=== PATIENT | female | born 1975 | race Caucasian/White ===

== ENCOUNTER 2023-05-18 06:43 | Emergency (ER) | payer BC, SELFPAY ==
[2023-05-18 06:46] VITALS: BP 125/69; PULSE 65; RESP 20; TEMP 36.7; O2SAT 99; BMI 23.3
--- NOTE | 2023-05-18 08:01 | ED_ITS ---
HPI - General Adult General Chief complaint: Upper Respiratory Infection Stated complaint: CONGESTION Time Seen by Provider: 05/18/23 07:40 Source: patient Mode of arrival: walk-in History of Present Illness HPI narrative: Patient is a 47-year-old female who is presenting to the Emergency Room with chief complaint of cough, congestion, and no improvement and coughing in the past 6-7 days. Patient has a history of asthma. Patient was seen at urgent care on Thursday. Patient has not follow-up with her PCP in [place]. Patient has mild sinus congestion. Dry cough throughout the day and evening. No severe pain, positive sore throat. No nausea, vomiting, diarrhea. No rash. Patient has no chest pain, mild shortness of breath. Patient was initially placed on Keflex and prednisone. Patient stated that she developed a rash to Keflex, and now she is residential through taking doxycycline. Patient is using Flonase, no other qofi-hyi-dgucpjo medication to help with cough and congestion. No other acute complaints. . All systems are negative except as noted/marked. All systems reviewed and otherwise negative. . Nurses note and vital signs reviewed and patient is not hypoxic. General: The patient appears well and in no apparent distress. Patient is resting comfortably on cart. Patient is not toxic, lethargic, or listless Skin: Warm, dry, no pallor noted. There is no rash noted. No petechiae, purpura. Head: Normocephalic, atraumatic; Patient has no tenderness to palpation to bilateral frontomaxillary sinus. Eye: Normal conjunctiva, no drainage, EOMI. PERRL Ears, Nose, Mouth, and Throat: oral mucosa is moist. Nares patent. Mouth without vesicles. Clear drainage noted to the posterior pharynx, mild cobblestoning, no bilateral tympanic membrane erythema, perforation or bulging. Cardiovascular: Regular Rate and Rhythm, no murmur, gallop, rub Respiratory: Patient is in no distress, no accessory muscle use, lungs are clear to auscultation, no wheezing, rales or rhonchi Back: non-tender, no CVA tenderness bilaterally to percussion. No CT LS midline pain GI: soft, no tenderness to palpation, no masses appreciated. No rebound, guarding, or rigidity noted. No flank pain bilateral, No distention Musculoskeletal: Patient has full range of motion of all of the extremities, no motor, sensory, or focal neurological deficits Neurological: A&O x3, normal speech Psychiatric: Cooperative Related Data Home Medications Medication Instructions Recorded Confirmed cephalexin 500 mg capsule 500 mg PO Q24H 05/18/23 05/18/23 doxycycline monohydrate 100 mg 100 mg PO Q12H 05/18/23 05/18/23 capsule fluticasone propionate 50 2 spray intranasal Q12H 05/18/23 05/18/23 mcg/actuation nasal spray,suspension ibuprofen 600 mg tablet 600 mg PO Q12H 05/18/23 05/18/23 Previous Rx's Medication Instructions Recorded benzonatate 100 mg capsule 200 mg PO TID PRN cough #20 caps 05/18/23 ozcsffwtrnswszt-uwkpntautcvdiiz-WS 10 ml PO Q6H PRN cold symptoms 05/18/23 2 mg-30 mg-10 mg/5 mL oral syrup #200 mL (Bromfed DM) Allergies Allergy/AdvReac Type Severity Reaction Status Date / Time cephalexin AdvReac Severe Hives Verified 05/18/23 06:50 Penicillins AdvReac Unknown Verified 05/18/23 06:50 Exam Constitutional Vital Signs, click to edit/add: Last Vital Signs Temp 98.0 F 05/18/23 06:46 Pulse 65 05/18/23 06:46 Resp 20 05/18/23 06:46 BP 125/69 05/18/23 06:46 Pulse Ox 99 05/18/23 06:46 O2 Del Method Room Air 05/18/23 06:46 Course Vital Signs Vital signs: Vital Signs Temperature 98.0 F 05/18/23 06:46 Pulse Rate 65 05/18/23 06:46 Respiratory Rate 20 05/18/23 06:46 Blood Pressure 125/69 05/18/23 06:46 Pulse Oximetry 99 05/18/23 06:46 Oxygen Delivery Method Room Air 05/18/23 06:46 Temperature 98.0 F 05/18/23 06:46 Pulse Rate 65 05/18/23 06:46 Respiratory Rate 20 05/18/23 06:46 Blood Pressure 125/69 05/18/23 06:46 Pulse Oximetry 99 05/18/23 06:46 Oxygen Delivery Method Room Air 05/18/23 06:46 Medical Decision Making MDM Narrative Medical decision making narrative: Patient has a very harsh demeanor for unknown reason. Patient is in the middle taking doxycycline as prescribed by previous physician. Patient was prescribed wound site and Tessalon Perles. Patient had time spent educating on using brka-qyc-jvxizxd treatment to help dry up her secretions that we'll therefore stopped her coughing. Patient is encouraged use her albuterol inhaler every 4 hours while awake. Patient will follow-up with PCP. Patient's currently not working, secondary to wrist injury. Patient daughter is also seen as a patient, she is also to continue to deny treatment as well. No questions at discharge. Patient's lungs are clear. Discharge Plan Discharge Chief Complaint: Upper Respiratory Infection Clinical Impression: Upper respiratory infection Patient Disposition: Home, Self-Care Prescriptions / Home Meds: New bledlyjpfufoqfa-jeduzepot-MW [Bromfed DM] 2-30-10 mg/5 mL syrup 10 ml PO Q6H PRN (Reason: cold symptoms) Qty: 200 0RF benzonatate 100 mg capsule 200 mg PO TID PRN (Reason: cough) Qty: 20 0RF No Action cephalexin 500 mg capsule 500 mg PO Q24H doxycycline monohydrate 100 mg capsule 100 mg PO Q12H fluticasone propionate 50 mcg/actuation spray,suspension 2 spray INTRANASAL Q12H ibuprofen 600 mg tablet 600 mg PO Q12H Instructions: Upper Respiratory Infection (ED), Acute Bronchitis (ED), Viral Syndrome (ED) Additional Instructions: Continue using Flonase. Start using DayQuil and NyQuil. Additional cough medication has been prescribed. Continue symptomatic treatment. Follow-up with PCP. Stand Alone Forms: Portal Instructions Referrals: KAMARI FUNK [Primary Care Provider] - 1 week
[2023-05-18 08:04] VITALS: BP 126/70; PULSE 65; RESP 20; O2SAT 99
== END 2023-05-18 08:06 | disposition home or self-care (01) ==
PROVIDERS: Emergency Provider Emergency Medicine; PCP Family Medicine
DX: J06.9 Acute upper respiratory infection, unspecified (principal); Z79.899 Other long term (current) drug therapy
CPT/HCPCS: 99283

== ENCOUNTER 2024-08-28 10:37 | Emergency (ER) | payer BC, SELFPAY ==
[2024-08-28 10:45] VITALS: BP 103/66; PULSE 73; TEMP 36.7; O2SAT 99; BMI 23.3
--- NOTE | 2024-08-28 10:50 | XR_ITS ---
[address] [address] Patient Name: EMBER SPANGLER MRN: [id number] date: 1975 Sex: F Assigned Patient Location: ED.MAIN Current Patient Location: ED.MAIN Accession/Order Number: [id number] Exam Date: 08/28/2024 10:58 Report Date: 08/28/2024 12:21 At the request of: YAMILA NICHOLS Procedure: XR chest 2V EXAM: XR chest 2V INDICATION: Cough. COMPARISON: None. TECHNIQUE: Two views of the chest FINDINGS: Normal cardiomediastinal contours. Normal pulmonary vasculature. No acute infiltrative process. No pleural effusion or pneumothorax. No acute osseous abnormality. XR/XR chest 2V IMPRESSION: No acute cardiopulmonary process. Electronically authenticated by: JUMA NOEL Date: 08/28/2024 12:21
--- OUTSIDE RECORDS SUMMARY | 2024-08-28 10:50 | XMS_ITS | CCD ---
Author Organization [facility] Inform ion Partnership [facility] Care Team Providers Care Electromechanical Technologist Name Role Phone Joselin Sorto Unavailable StellaMalena Unavailable NOY DELEON Attending Unavailable MELVIN LEWIS Referring Unavailable MELVIN LEWIS Attending Unavailable NOY DELEON Attending Unavailable MELVIN LEWIS Referring Unavailable URMILA ALEMAN Attending Unavailable GABBY DAILY Attending Unavailable GABBY DAILY Referring Unavailable GABBY DAILY Attending Unavailable NOY DELEON Attending Unavailable MELVIN LEWIS Referring Unavailable MELVIN LEWIS Attending Unavailable NOY DELEON Attending Unavailable MELVIN LEWIS Referring Unavailable Unallocated , Noms Provider Primary Care Provi massimo Allergies Allergy Classification Reported Allergen(s) Allergy Type Date of Onset Reaction(s) Facility (4 sources) Codeine Drug Allergy 09-17-19 [address] [facility] (2 sources) Penicillin G Drug Allergy Unknown [facility] (2 sources) Sulfacetamide Drug Allergy Unknown [facility] Other (2 sources) glycerine Propensity to adverse reactions Unknown [facility] Other (2 sources) guaiFENesin Drug Allergy 05-04-20 Headache [facility] (2 sources) Iodine Drug Allergy 09-19-19 [facility] (2 sources) Penicillins Drug Intolerance 09-17-19 17 Hives [facility] (2 sources) Sulfonamides (Antibiotic) Drug Allergy 05-04-[address] [facility] Medications Current Medications Medication Drug Class(es) Dates Sig (Normalized) Sig (Original) cephalexin 500 mg oral capsule (1 source) Cephalosporin Antibacterial Start: 05-13-2023 take 1 capsule by mouth every eight hours Cephalexin 500 MG 1 capsule Orally tid for 10 day(s) Apr, Active fluticasone propionate 0.05 mg/actuat metered dose nasal spray (1 source) Corticosteroid Start: 05-13-2023 take 2 spray(s) nasal route once daily Fluticasone Propionate 50 MCG/ACT 2 sprays Nasally Once a day for 14 day(s) Apr, Active predniSONE 20 mg oral tablet (3 sources) Start: 05-13-2023 take 1 tablet by mouth every twelve hours predniSONE 20 MG 1 tablet Orally bid for 5 day(s) Apr, Active Start: 01-05-2023 prednisone 10 MG as directed with food Orally 5 tablet x 2 days, 4 tablet x2 days, 3 tablet x2 days, 2 tablet x 2 days, 1 tablet x 2 days for 10 days Dec, Not-Taking Completed/Discontinued Medications Medication Drug Class(es) Dates Sig (Normalized) Sig (Original) [id number] 200 actuat albuterol 0.09 mg/actuat metered dose inhaler (4 sources) beta2-Adrenergic Agonist Start: 05-05-2022 take 2 puff(s) by inhalation every four hours as needed Albuterol Sulfate HFA 108 (90 Base) MCG/ACT 2 puffs as needed Inhalation every 4 hrs Apr, Not-Taking Start: 05-05-2022 take 2 puff(s) by in halation every four hours as needed Albuterol Sulfate HFA 108 (90 Base) MCG/ACT 2 puffs as needed Inhalation every 4 hrs Apr, Not-Taking albuterol HFA (P roAir HFA) 90 mcg/act inhaler every 4 (four) hours. Active azithromycin 250 mg oral tablet (2 sources) Macrolide Antimicrobial Start: 05-05-2022 Azithromycin 250 MG 2 tablets on the first day, then 1 tablet daily for 4 days Orally Once a day for 5 day(s) Apr, Not-Taking busPIRone hydrochloride 10 mg oral tablet (2 sources) busPIRone HCl 10 MG Oral for 10 Days Not-Taking 12 hr dextromethorphan hydrobromide 30 mg / guaiFENesin 600 mg extended release oral tablet (2 sources) Uncompetitive W-uczmao-Q-asparta te Receptor Antagonist, Sigma-1 Agonist Start: 05-05-2022 take 1 tablet by mouth every twelve hours Mucinex DM 30-600 MG 1 tablet as needed Orally every 12 hrs Apr, Not-Taking DULoxetine 60 mg delayed release oral capsule (2 sources) Serotonin and Norepinephrine Reuptake Inhibitor DULoxetine HCl 60 MG Oral for 90 Days Not-Taking methylPREDNISolone 4 mg oral tablet (2 sources) Corticosteroid Start: 05-05-2022 methylPREDNISolone 4 MG as directed Orally Once a day for 6 days Apr, Not-Taking triamcinolone acetonide 40 mg/ml injectable suspension (2 sources) Corticosteroid Start: 01-05-2023 Kenalog-40 Dec, 60 mg Problems Active Problems Problem Classification Problem Date Documented Date Episodic/Chronic Abdominal pain (2 sources) Abdominal pain; Translations: [Abdominal pain] Episodic Acute bronchitis (1 source) Acute bronchitis; Translations: [Bronchitis, Acute] Episodic Adjustment disorders (2 sources) Adjustment disorder with mixed anxiety and depressed mood; Translations: [Adjustment disorder with mixed anxiety and depressed mood] Onset: 06-16-2023 06-16-2023 Chronic Allergic reactions (1 source) Allergic contact dermatitis due to plants, except food Episodic Asthma (2 sources) Asthma; Translations: [Asthma, unspecified] Chronic Immunizations and screening for infectious disease (2 sources) Contact with and (suspected) exposure to other viral communicable diseases; Translations: [Contact with and (suspected) exposure to other viral communicable diseases] Episodic Osteoarthritis (2 sources) Osteoarthrosis of the carpometacarpal joint of the thumb; Translations: [Unilateral primary osteoarthritis of first carpometacarpal joint, right hand] Onset: 05-05-2023 05-05-2023 Chronic Other ear and sense organ disorders (1 source) Impacted cerumen, left ear Episodic Other lower respiratory disease (2 sources) Cough; Translations: [Cough] Episodic Other nervous system disorders (2 sources) Carpal tunnel syndrome of right wrist; Translations: [Carpal tunnel syndrome, right upper limb] Onset: 05-05-2023 05-05-2023 Chronic Other upper respiratory infections (2 sources) Acute pharyngitis, unspecified; Translations: [Acute sinusitis, unspecified] Episodic Otitis media and related conditions (1 source) Otitis media, unspecified, left ear Episodic Past or Other Problems Problem Classification Problem Date Documented Da te Episodic/Chronic Acute bronchitis (1 source) Acute bronchitis; Translations: [Bronchitis, Acute] Administrative/social admission (2 sources) Parent-child problem; Translations: [Parent-biological child conflict] Onset: 06-16-2023 06-16-2023 Episodic Other connective tissue disease (2 sources) Tendinitis of wrist; Translations: [Other enthesopathies, not elsewhere classified] Onset: 05-05-2023 05-05-2023 Episodic Other non-traumatic joint disorders (2 sources) Pain of right wrist; Translations: [Pain in right wrist] Onset: 05-05-2023 05-05-2023 Episodic Unclassified (1 source) Contact with and (suspected) exposure to covid-19 Z20.822 Viral infection (1 source) Human papilloma virus infection; Translations: [Papillomavirus as the cause of diseases classified elsewhere] 03-07-2024 Episodic Results Test Name Value Interpretation Reference Range Facility Laboratory - Specimen inform ationon 03-09-2024 Specimen source Nom (Unsp spec) [facility] Comment on above: Cervix, 2, 6, 11 o'c lock, biopsy: Endocervix, curettag e: No Panel Informationon 03-09 Pathology report final diagnosis Narrative [facility] Comment on above: Low grade squamous i ntraepithelial lesion (ALEXSANDER 1). Fragments of unremar kable endocervical epithelium and squamous epithelium. Pathology report gross observation Narrative [facility] Comment on above: Received in 10% neut ral buffered formalin is a specimen labeled cervix 2:00, 6:00, 11:00 that consists of multiple fragments of buckner tissue admixed with mucoid material measuring 2.0 x 0.2 x 0.1 cm in aggregate. Submitted entirely in one cassette. Received in 10% neut ral buffered formalin is a specimen labeled ECC that consists of pale buckner mucoid material on a wire brush tip measuring in aggregate 3.0 x 2.5 x 0.1 cm. Submitted entirely in one cassette(s). SW Tissue examon 03-09-2024 Clinical information [facility] Comment on above: [id number] Pathologist Cyto stain Nom (Cvx/Vag) [ID] [facility] Comment on above: Elena Adams M.D. Board certified in Anatomic Pathology and Clinical Pathology (electronic signature) [phone] Performing Organization Information Site ID: [id number] Name: [facility] Address: [facility], [place] [address] Director: Elena Adams MD [facility] [employer] [facility] [employer] e HCG ( test) Ql (U)o n 03-07-2024 Interpretation and review of laboratory results Normal [facility] re Preg Test, Ur Negative [facility] [employer] [facility] BI MAMMOGRAM SCREENING TOMOS YNTHESIS BILATERALon 02-23-2024 BI MAMMOGRAM SCREENING TOMOSYNTHESIS BILATERAL This is a summary report. The complete report is available in the patient's medical record. If you cannot access the medical record, please contact the sending organization for a detailed fax or copy. EXAMINATION: BI MAMMOGRAM SCREENING TOMOSYNTHESIS BILATERAL CLINICAL HISTORY:breats cancer screening COMPARISON: There are no previous mammograms available for comparison. RESULT: Density: Scattered fibroglandular density [2] There is no suspicious mass, asymmetry, architectural distortion, or calcification IMPRESSION: BIRADS 1 - Negative Follow-up: Routine Screening Mamm Board Certified Radiologists. Accredited by the ACR and FDA. MAMMOGRAPHY IS VERY IMPORTANT TO YOUR HEALTH. THE [place] [employer] [place] [employer] GUIDELINES RECOMMEND THAT WOMEN 40 YEARS OF AGE AND OLDER SHOULD HAVE A MAMMOGRAM EVERY YEAR. A REMINDER LETTER WILL BE SENT AT THE APPROPRIATE TIME. THIS FACILITY UTILIZES A REMINDER SYSTEM TO ENSURE ALL PATIENTS RECEIVE REMINDER NOTIFICATIONS AT THE APPROPRIATE TIME BASED ON THE RECOMMENDATIONS OF THIS EXAM. THIS INCLUDES REMINDERS FOR ROUTINE SCREENING MAMMOGRAMS, DIAGNOSTIC MAMMOGRAMS IN WHICH THE PATIENT IS ASKED TO RETURN FOR ADDITIONAL VIEWS, OR OTHER BREAST IMAGING INTERVENTIONS WHEN APPROPRIATE. THE PATIENT WILL BE PLACED IN THE APPROPRIATE REMINDER SYSTEM INCLUDING A REMINDER AT THE APPROPRIATE TIME FOR ANY PENDING ADDITIONAL VIEWS. TRANSCRIBED BY: ELECTRONICALLY SIGNED BY: Sachin Stone MD Normal Not Available MR WRIST RIGHT WO IV CONTRAS Ton 05-28-2023 MR WRIST RIGHT WO IV CONTRAST HISTORY: Right wrist pain. Repetitive motion work related injury. Anterior wrist pain and swelling intermittently. TECHNIQUE: Routine MRI of the wrist, right side; COMPARISON: None RESULT: Limitations from motion. Within these limits: BONE MARROW: No evidence for fracture within limits of motion. Benign-appearing cystic changes involving the lunate. LIGAMENTS: The scapholunate ligament and lunotriquetral ligament appear to be grossly intact within limits of motion. TRIANGULAR FIBROCARTILAGE: The triangular fibrocartilage appears to be intact. CARTILAGE: Cystic changes involving the lunate as above, probably degenerative in etiology. Otherwise cartilage grossly unremarkable within limits of motion. TENDONS: The flexor and extensor tendons are intact. NERVES: The visualized portions of the median and ulnar nerves appear to be within normal limits. JOINT FLUID AND SYNOVIUM: Cystic lesion near the radiocarpal joint along the volar aspect at the radial styloid, probably representing small ganglion cyst measuring approximately 0.7 x 0.7 cm. OTHER: No other significant abnormality. IMPRESSION: No evidence for fracture. Benign-appearing cystic change involving the lunate as discussed. Small ganglion cyst. ELECTRONICALLY SIGNED BY: Robin Purvis MD Normal Not Available COVID/FLU RT-PCRon SARS-CoV-2 (COVID-19) RNA ABIMBOLA+probe Ql (Unsp spec) Negative [facility] Other COVID/FLU RT-PCR Negative [facility] [employer] Other Quick Strepon 05-13-2023 S. pyogenes Org specific cx Ql (Throat) Negative [facility] [employer] Other Quick Strep [facility] Other Vital Signs Date Time Vital Sign Value Performing Clinician Facility 03-07-2024 17:16-0400 Body mass index (BMI) [Ratio] 28.84 kg/m2 [facility] Work Phone: [facility] 03-07-2024 17:16-0400 Body weight 76.2 kg [facility] Work Phone: [facility] 05-13-2023 10:05-0400 Body height 166.37 cm Malena Douglas Other [facility] Other 05-13-2023 10:05-0400 Body mass index (BMI) [Ratio] 27.53 kg/m2 Malena Douglas Other [facility] Other 10-18-2023 10:05-0400 Body temperature 98.1 [degF] Malena Douglas Other [facility] Other 05-13-2023 10:05-0400 Body weight 76.2 kg Malena Douglas Other [facility] Other 05-13-2023 10:05-0400 Diastolic blood pressure 68 mm[Hg] Malena Merrittmond Other [facility] Other 05-13-2023 10:05-0400 Respiratory rate 18 /min Malena Douglas Other [facility] Other 05-13-2023 10:05-0400 SaO2% (BldA) [Mass fraction] 98 % Malena Douglas Other [facility] Other 05-13-2023 10:05-0400 Systolic blood pressure 120 mm[Hg] Malena Douglas Other [facility] Other 01-05-2023 15:30-0400 Body height 166.37 cm Joselin Sorto Other [facility] Other 01-05-2023 15:30-0400 Body mass index (BMI) [Ratio] 26.48 kg/m2 Joselin Sorto Other [facility] Other 01-05-2023 15:30-0400 Body temperature 98.1 [degF] Joselin Sorto Other [facility] Other 01-05-2023 15:30-0400 Body weight 73.3 kg Joselin Sorto Other [facility] Other 01-05-2023 15:30-0400 Respiratory rate 18 /min Joselin Sorto Other [facility] Other 01-05-2023 15:30-0400 SaO2% (BldA) [Mass fraction] 99 % Joselin Sorto Other [facility] Other Encounters Encounter Date Encounter Type Care Provider Facility Start: 03-15-2024 End: 03-15-2024 Telephone encounter Gabby Daily CNM Work Phone: [facility] Start: 03-07-2024 End: 03-07-2024 Patient encounter procedure Gabby Daily CNM Work Phone: [facility] Comment on above: High risk HPV infect ion Start: 03-07-2024 End: 03-07-2024 ambulatory GABBY DAILY Not Available Start: 02-23-2024 End: 02-23-2024 ambulatory GABBY DAILY Not Available Start: 01-07-2024 End: 01-07-2024 ambulatory GABBY DAILY Not Available Start: 06-16-2023 End: 06-16-2023 ambulatory URMILAALISHA ALEMAN Not Available Start: 06-15-2023 End: 06-15-2023 ambulatory NOY DELEON Not Available Start: 06-15-2023 End: 06-15-2023 ambulatory MELVIN LEWIS Not Available Start: 06-12-2023 End: 06-15-2023 ambulatory NOY DELEON Not Available Start: 06-08-2023 End: 06-08-2023 ambulatory NOY DELEON Not Available Start: 05-13-2023 End: 05-13-2023 ambulatory Malena Douglas Other [facility] Other Start: 05-13-2023 Office outpatient visit 15 minutes Malena Douglas [facility] Start: 01-05-2023 End: 01-05-2023 ambulatory Joselin Sorto Other [facility] Other Start: 01-05-2023 Office outpatient visit 15 minutes Joselin Salazarler [facility] Procedures Date Procedure Procedure Detail Performing Clinician Start: 03-07-2024 Urine test visual color cmprsn meths Gabby Daily CNM Work Phone: Start: 03-07-2024 Level i surg patholo gy gross examination only Gabby Daliy CNM Work Phone: Start: 02-23-2024 Mammography Gabby gunn CNM Work Phone: Plan of Treatment Date Care Activity Detail Author Start: 02-22-2025 Screening for malign ant neoplasm of breast Mammogram [facility] Start: 03-27-2024 Influenza vaccination Influenza Vacc ine (#1) [facility] Start: 2005 Screening for malign ant neoplasm of cervix [facility] Start: 1996 Screening for malign ant neoplasm of cervix Pap Smear [facility] Start: 1975 Screening for malign ant neoplasm of colon [facility] Payers Date Payer Category Payer Medicaid MEDICAID [facility] [id number] 2023-Present [phone] [address] [place] [address] Medicaid [id number] 2023 Medicaid [id number] 2022 Unknown BCBS BCBS [id number] 2022-Present [phone] [address] [place] [address] [id number] 2022 Blue Cross Blue Shield [id number] 1975 Unknown [id number] 259 1975 Unknown [id number] 259 1975 Unknown [id number] 259 1975 Unknown [id number] 259 1975 Unknown [id number] 259 1975 Unknown [id number] 259 1975 Unknown [id number] 259 1975 Unknown [id number] 259 1975 Unknown [id number] 259 1975 Unknown [id number] 259 Social History Date Type Detail Facility Unknown if ever smoked [facility] Other Start: 03-07-2024 Sex Assigned At [facility] [employer] Other Start: 05-03-2023 Tobacco smoking stat [facility] Never smoked tobacco [facility] Start: 05-03-2023 Tobacco use and exposure Smokeless tobacco non-user [facility] Start: 03-07-2024 Alcoholic beverage intake Ex-drinker (finding) [facility] Start: 03-07-2024 History of Social function [facility] Start: 1975 Sex assigned at Not on file [facility] Telephone encounter Note 03-15-2024 Telephone Encounter - Rufina Virgen - 03/15/2024 11:13 AM EDT Note Date & Type Note Facility 03-15-2024 Telephone encount er Note Patient is calling for her test results, you can best call her after 3 as she is at work and may not hear her phone. [phone] [facility] Note 03-15-2024 Telephone Encounter - Rufina Virgen - 03/15/2024 11:13 AM EDT Note Date & Type Note Facility 03-15-2024 Miscellaneous Notes Formattin g of this note might be different from the original. Patient is calling for her test results, you can best call her after 3 as she is at work and may not hear her phone. [phone] documented in this encounter [facility] History of Present illness Narrative 03-07-2024 Gabby Daily CNM - 03/07/2024 5:00 PM EDT Note Date & Type Note Facility 03-07-2024 History of Presen t illness Narrative PROBLEM VISIT Vivian Salazar is 48 y.o. a patient of [facility] DIRECTOR HOME HEALTH Here for colpo Last pap: 01/08/24 Last mammogram: 02/23/24 No LMP recorded. History: Past Medical History: Diagnosis Date Asthma (CMS/HCC) Celiac disease (CMS/HCC) Constipated IBS (irritable bowel syndrome) Past Surgical History: Procedure Laterality Date SECTION, LOW TRANSVERSE 2010 VA KNEE SCOPE,CLEAN/DRAIN Right 2005 DR BARRON VA LAP,CHOLECYSTECTOMY 2015 TUBAL LIGATION 2010 Family History Problem Relation Name Age of Onset Ovarian cysts Mother Diabetes Mother Heart disease Mother @SOCHX@ Allergies: Allergies Allergen Reactions Codeine Headache Other Reaction(s): Drowsiness Guaifenesin Headache Iodine Penicillins Hives Other Reaction(s): Swelling-lips,tongue,face Sulfa Antibiotics Unknown Medications: Current Outpatient Medications on File Prior to Visit Medication Sig Dispense Refill albuterol HFA (ProAir HFA) 90 mcg/act inhaler every 4 (four) hours. No current facility-administered medications on file prior to visit. There were no vitals filed for this visit. HPI: pt here for colpo ROS: Review of Systems Physical exam: Physical Exam Assessment and Plan: Colposcopy: Patient is doing well and has no complaints. Pap results have been reviewed with the patient in great detail and patient voiced understanding. Patient presents today for a Colposcopy with ECC. Patient was placed in dorsal lithotomy position with feet in stirrups, a sterile speculum was placed into the vagina and the cervix was visualized. Cervix was cleansed with betadine swab. Sterile ECC instrument was introduced into cervical os and ECC biopsy obtained without difficulty. 5% acetric acid was then placed onto the cervix for 2-3 mins. Sterile mini tischler was used to obtain biopsies from 2, 6, 11 o'clock without difficulty. Hemostasis noted at the end of procedure. Patient tolerated procedure well. Postprocedural instructions given and patient is to avoid intercourse for seven days, and if bleeding is enough to change a pad every hour patient should go to the nearest ED. All if patients questions answered and she expressed understanding. Advised to call in interim with questions or concerns. Follow Up: Patient is to return for repeat annual Pap or sooner depending on colposcopyresults. Vivian was seen today for colposcopy. Diagnoses and all orders for this visit: High risk HPV infection - Tissue exam; Future - Tissue exam No follow-ups on file. There are no Patient Instructions on file for this visit. Maddison Koo MA,03/07/2024 5:19 PM documented in this encounter [facility] Evaluation note 05-13-2023 Note Date & Type Note Facility 05-13-2023 Evaluation note Encounter Date Diagnosis Assessment Notes Apr, Sore throat (ICD-10 - J02.9) Apr, Acute sinusitis, recurrence not specified, unspecified location (ICD-10 - J01.90) Sinusitis home care material was printed Drink plenty fluids, get plenty of rest. Take the cephalexin and prednisone as prescribed until gone. Use the fluticasone nasal spray as prescribed until your symptoms improved. Take Tylenol or Motrin as needed for aches pains or fevers. Follow-up with your family physician if no improvement in 2 to 3 days Apr, Contact with and (suspected) exposure to covid-19 (ICD-10 - Z20.822) Apr, Left otitis media, unspecified otitis media type (ICD-10 - H66.92) Middle ear infection: adult home care material was printed Apr, Left ear impacted cerumen (ICD-10 - H61.22) [facility] Other Evaluation note 01-05-2023 Note Date & Type Note Facility 01-05-2023 Evaluation note Encounter Date Diagnosis Assessment Notes Dec, Contact dermatitis due to poison sumac (ICD-10 - L23.7) Discussed diagnosis with patient. Kenalog injection provided in office. Will send in rx of steroid to take as directed. Advised to take medications with food and plenty of water, complete entire course even if feeling better, start tomorrow. Patient instructed not to scratch or pick at rash. May use hydrocortisone cream or calamine lotion for topical relief. Patient may also use cool wet compress for itching relief. Keep rash open to air. Wash all clothing/items that could have come into contact with plant oil. Follow up with PCP in 1 week or sooner if symptoms worsen. Immediate eval by ER if develop fever, stiff neck, nausea, vomiting, joint/body aches, increase in swelling, redness, warmth, red streaking, purulent drainage, or any other new or concerning symptoms arise. Patient verbalizes understanding and is agreeable to treatment plan. [facility] Other Evaluation note Note Date & Type Note Facility Evaluation note Diagnosis High risk HPV infection documented in this encounter [facility] History general Narrative - Reported Note Date & Type Note Facility History general Narrative - Reported Type Medical History asthma Medical History anxiety Surgical History rt knee surgery Surgical History C section Surgical History tubal ligation Hospitalization History see surgical hx [facility] Other History general Narrative - Reported Note Date & Type Note Facility History general Narrative - Reported Type Medical History asthma Medical History anxiety Surgical History rt knee surgery Surgical History C section Surgical History tubal ligation Surgical History cholecystectomy Hospitalization History see surgical hx [facility] Other Summary Purpose Family History No Family History Records Found Advance Directives No Advanced Directives Records Found Additional Source Comments REASON FOR VISIT (unrecogniz ed section and content) Reason Comments Colposcopy INFORMATION SOURCE (unrecogn ized section and content) DATE CREATED AUTHOR 03/12/2024 [facility] Care Teams (unrecognized sec tion and content) Electromechanical Technologist Relationship Specialty Start Date End Date Unallocated, Noms Provider, MD [address] [facility] [place] [address] PCP - General 05/04/23 Electromechanical Technologist Relationship Specialty Start Date End Date Unallocated, Brendon Corley MD [address] [facility] [place] [address] PCP - General 05/04/23 FOR RECORDS PERTAINING TO PATIENTS WHO ARE OR HAVE BEEN ENROLLED IN A CHEMICAL DEPENDENCY/SUBSTANCEABUSE PROGRAM, SOME INFORMATION MAY BE OMITTED. This clinical summary was aggregated from multiple sources. Caution should be exercised in using it in the provision of clinical care. This summary normalizes information from multiple sources, and as a consequence, information in this document may materially change the coding, format and clinical context of patient data. In addition, data may be omitted in some cases. CLINICAL DECISIONS SHOULD BE BASED ON THE PRIMARY CLINICAL RECORDS. [facility] [email or web address] [facility]. provides no warranty or guarantee of the accuracy or completeness of information in this document.
[2024-08-28 10:58] VITALS: O2SAT 99
[2024-08-28 11:18] LABS: Influenza Virus A Antigen Negative; Influenza Virus B Antigen Negative; Internal Control Within Normal Limits; SARS-CoV-2 Ag POSITIVE (NEGATIVE)
--- NOTE | 2024-08-28 11:33 | ED_ITS ---
HPI - URI/Sore Throat General Chief Complaint: Upper Respiratory Infection Stated Complaint: l EAR PAIN, COUGHING, SHORTNESS OF BREATH Time Seen by Provider: 08/28/24 11:06 Source: patient History of Present Illness HPI Narrative: Patient presented to the ER with a few days history of sore throat associated with cough as well as fever chills generalized body ache, and left ear pain Related Data Home Medications ?Medication ?Instructions ?Recorded ?Confirmed cephalexin 500 mg capsule 500 mg PO Q24H 05/18/23 05/18/23 doxycycline monohydrate 100 mg 100 mg PO Q12H 05/18/23 05/18/23 capsule fluticasone propionate 50 2 spray intranasal Q12H 05/18/23 05/18/23 mcg/actuation nasal spray,suspension ibuprofen 600 mg tablet 600 mg PO Q12H 05/18/23 05/18/23 Previous Rx's ?Medication ?Instructions ?Recorded benzonatate 100 mg capsule 200 mg (2 x 100 mg) PO TID PRN 05/18/23 cough #20 caps xnjsyfpwxklndjw-dptovarfvtvnhie-MI 10 ml PO Q6H PRN cold symptoms 05/18/23 2 mg-30 mg-10 mg/5 mL oral syrup #200 mL (Bromfed DM) albuterol sulfate 90 mcg/actuation 2 inh inhalation QID PRN shortness 08/28/24 aerosol inhaler of breath or wheezing #8.5 grams azithromycin 250 mg tablet See Rx Instructions PO .COMPLEX #6 08/28/24 (Zithromax Z-Boy) tabs guaifenesin 600 mg tablet, 600 mg PO BID PRN cough #10 tabs 08/28/24 extended release 12 hr (Mucinex) prednisone 20 mg tablet 40 mg (2 x 20 mg) PO DAILY 5 days 08/28/24 #10 tabs Allergies Allergy/AdvReac Type Severity Reaction Status Date / Time codeine Allergy Severe Hives Verified 08/28/24 10:49 cephalexin AdvReac Severe Hives Verified 05/18/23 06:50 Penicillins AdvReac Unknown Unknown Verified 08/28/24 10:49 Review of Systems ROS Status of ROS 10 or more systems reviewed and unremark able except as noted in history and below PFSH PFSH Social History Little interest or pleasure in doing things: not at all Feeling down, depressed, or hopeless: not at all Exam Narrative Exam Narrative: Nurses notes and vital signs reviewed and patient is not hypoxic. General: Well-appearing and in no apparent distress. Skin: Warm, dry, no pallor noted. No rash. Head: Normocephalic, atraumatic. Neck: Supple, non-tender. Eye: Pupils are equal, round and EOMI. No scleral icterus. Ears, Nose, Mouth, and Throat: The patient right ear examination shows normal tympanic membrane while the left ear examination showed that the patient have erythema of the tympanic membrane with bulging with serous fluid, Oral mucosa is moist, no posterior oropharynx erythema, uvula is mid-line Cardiovascular: Regular Rate and Rhythm without murmur, gallop or rub. Respiratory: No accessory muscle use or respiratory distress. Lungs are clear to auscultation, no wheezing, rales or rhonchi Chest Wall: no tenderness Back: No midline thoracic or lumbar vertebral tenderness. No CVA tenderness Musculoskeletal: normal ROM, no calf or popliteal tenderness, no lower extremity edema/swelling GI: Abdomen is soft, non-distended. Normal bowel sounds. No masses appreciated. No tenderness to palpation. No rebound, guarding, or rigidity noted. Neurological: A&O x4. No cranial nerve dysfunction observed. No truncal ataxia. Moves all extremities. Sensation intact. Psychiatric: Cooperative and interactive. Normal mood and affect. Constitutional Vital Signs, click to edit/add: Last Vital Signs Temp 98.0 F 08/28/24 10:45 Pulse 73 08/28/24 10:45 Resp 16 08/28/24 10:45 BP 103/66 08/28/24 10:45 Pulse Ox 99 08/28/24 10:58 O2 Del Method Room Air 08/28/24 10:58 Course Vital Signs Vital signs: Vital Signs Temperature 98.0 F 08/28/24 10:45 Pulse Rate 73 08/28/24 10:45 Respiratory Rate 16 08/28/24 10:45 Blood Pressure 103/66 08/28/24 10:45 Pulse Oximetry 99 08/28/24 10:45 Oxygen Delivery Method Room Air 08/28/24 10:45 Temperature 98.0 F 08/28/24 10:45 Pulse Rate 73 08/28/24 10:45 Respiratory Rate 16 08/28/24 10:45 Blood Pressure 103/66 08/28/24 10:45 Pulse Oximetry 99 08/28/24 10:58 Oxygen Delivery Method Room Air 08/28/24 10:58 MDM - URI/Sore Throat MDM Narrative Medical decision making narrative: Chest x-ray showed no acute pathology Flu test is negative but the COVID is positive The patient presentation is mostly secondary to COVID-19 although the patient left ear examination also could be secondary to otitis media I explained to the patient to have history of asthma and she needed already a refill on her inhaler that she will be to discharge home with prednisone as well as Z-Boy that she will not use until 2 days from now if the symptoms continue The patient is to follow up with primary care physician in next 2-3 days or to return to the emergency department should any of the signs or symptoms worsen or new symptoms develop. The patient agrees with the following Diagnosis and Treatment plan and the patient will be discharged home. Lab Data Labs: Lab Results 08/28/24 Range/Units 10:51 Influenza Type A Ag Negative Influenza Type B Ag Negative SARS-CoV-2 Ag (CV2AG) Positive A (NEGATIVE) Discharge Plan Discharge Chief Complaint: Upper Respiratory Infection Clinical Impression: COVID-19, Otitis media, Bronchitis Patient Disposition: Home, Self-Care Time of Disposition Decision: 12:07 Condition: Good Prescriptions / Home Meds: New azithromycin [Zithromax Z-Boy] 250 mg tablet See Rx Instructions .ROUTE .COMPLEX Qty: 6 0RF Rx Instructions: For 250 mg dose pack: take 500 mg today (day 1), then 250 mg for 4 days (days 2-5) guaifenesin [Mucinex] 600 mg tablet extended release 12hr 600 mg PO BID PRN (Reason: cough) Qty: 10 0RF prednisone 20 mg tablet 40 mg PO DAILY 5 Days Qty: 10 0RF albuterol sulfate 90 mcg/actuation HFA aerosol inhaler 2 inh inhalation QID PRN (Reason: shortness of breath or wheezing) Qty: 8.5 0RF No Action cephalexin 500 mg capsule 500 mg PO Q24H doxycycline monohydrate 100 mg capsule 100 mg PO Q12H fluticasone propionate 50 mcg/actuation spray,suspension 2 spray INTRANASAL Q12H ibuprofen 600 mg tablet 600 mg PO Q12H uzaxznueeprmqpx-bshjrbhkv-LZ [Bromfed DM] 2-30-10 mg/5 mL syrup 10 ml PO Q6H PRN (Reason: cold symptoms) Qty: 200 0RF benzonatate 100 mg capsule 200 mg PO TID PRN (Reason: cough) Qty: 20 0RF Print Language: Fijian Instructions: Acute Bronchitis (ED), COVID-19 (Coronavirus Disease 2019) (ED) Referrals: Physician,Non-Staff, MD [Primary Care Provider] - 1 week Discharge Date/Time: 08/28/24 12:40
== END 2024-08-28 12:40 | disposition home or self-care (01) ==
PROVIDERS: Emergency Provider Emergency Medicine
DX: U07.1 COVID-19 (principal); H66.92 Otitis media, unspecified, left ear; J45.909 Unspecified asthma, uncomplicated
CPT/HCPCS: 71046; 87804; 87811; 99284

== ENCOUNTER 2024-09-06 17:03 | Emergency (ER) | payer BC, SELFPAY ==
[2024-09-06 17:25] VITALS: BP 118/72; PULSE 68; TEMP 36.6; O2SAT 100; BMI 23.3
--- NOTE | 2024-09-06 18:21 | XR_ITS ---
The [address] [address] Patient Name: EMBER SPANGLER MRN: [id number] date: 1975 Sex: F Assigned Patient Location: ER Current Patient Location: ER Accession/Order Number: [id number] Exam Date: 09/06/2024 18:30 Report Date: 09/06/2024 18:50 At the request of: NHI BROOKS Procedure: XR chest 2V EXAM: XR chest 2V HISTORY: sob COMPARISON: 08/28/2024 TECHNIQUE: Chest X-ray, 2 views FINDINGS: Support devices: None. Lungs/pleura: No consolidation, effusion, or pneumothorax. Heart and mediastinum: Normal contours. Bones: No acute abnormality identified. XR/XR chest 2V Impression: No radiographic evidence of acute cardiopulmonary process. Electronically authenticated by: GLADIS COX Date: 09/06/2024 18:50
--- NOTE | 2024-09-06 18:21 | ED.GENADUL1 ---
HPI HPI - General Adult General Chief complaint: Shortness of Breath/Dyspnea Stated complaint: short of breath Time Seen by Provider: 09/06/24 18:20 Source: patient Mode of arrival: walk-in Limitations: no limitations History of Present Illness HPI narrative: Patient states she was diagnosed with COVID 9 days ago with cough and congestion. 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 She has used inhalers in the past with last usage reported 2 years ago. She has a history of asthma. Related Data Home Medications ?Medication ?Instructions ?Recorded ?Confirmed cephalexin 500 mg capsule 500 mg PO Q24H 05/18/23 05/18/23 doxycycline monohydrate 100 mg 100 mg PO Q12H 05/18/23 05/18/23 capsule fluticasone propionate 50 2 spray intranasal Q12H 05/18/23 05/18/23 mcg/actuation nasal spray,suspension ibuprofen 600 mg tablet 600 mg PO Q12H 05/18/23 05/18/23 Previous Rx's ?Medication ?Instructions ?Recorded benzonatate 100 mg capsule 200 mg (2 x 100 mg) PO TID PRN 05/18/23 cough #20 caps gkpkhwrtvrzwova-etibikssbvznrkn-XC 10 ml PO Q6H PRN cold symptoms 05/18/23 2 mg-30 mg-10 mg/5 mL oral syrup #200 mL (Bromfed DM) albuterol sulfate 90 mcg/actuation 2 inh inhalation QID PRN shortness 08/28/24 aerosol inhaler of breath or wheezing #8.5 grams azithromycin 250 mg tablet See Rx Instructions PO .COMPLEX #6 08/28/24 (Zithromax Z-Boy) tabs guaifenesin 600 mg tablet, 600 mg PO BID PRN cough #10 tabs 08/28/24 extended release 12 hr (Mucinex) prednisone 20 mg tablet 40 mg (2 x 20 mg) PO DAILY 5 days 08/28/24 #10 tabs albuterol sulfate 90 mcg/actuation 1 inh inhalation Q6H PRN shortness 09/06/24 aerosol inhaler of breath or wheezing #8.5 grams dextromethorphan-guaifenesin ER 60 1 tab PO BID PRN cough #20 tabs 09/06/24 mg-1,200 mg tab,extend release,12hr (Mucinex DM) prednisone 20 mg tablet 20 mg PO DAILY #7 tabs 09/06/24 Allergies Allergy/AdvReac Type Severity Reaction Status Date / Time codeine Allergy Severe Hives Verified 09/06/24 17:24 cephalexin AdvReac Severe Hives Verified 09/06/24 17:24 Penicillins AdvReac Unknown Unknown Verified 09/06/24 17:24 Opioid HPI Opioid Management Most Recent Opioid Data: No Data to Display Review of Systems ROS Status of ROS 10 or more systems reviewed and unremarkable except as noted in history and below PFSH PFSH Social History Little interest or pleasure in doing things: not at all Feeling down, depressed, or hopeless: not at all Exam Narrative Exam Narrative: Afebrile and nondistressed. Oxygen saturation 100% on room air. There is no conversational dyspnea. HEENT exam is normal to inspection. Neck is supple. Lung sounds are clear to auscultation bilaterally. Heart has regular rate and rhythm. Abdomen is soft. Skin is warm and dry. Speech and mentation are clear and intact. There is no facial asymmetry. She moves all extremities actively. Constitutional Vital Signs, click to edit/add: Last Vital Signs Temp 98 F 09/06/24 17:25 Pulse 66 09/06/24 18:44 Resp 18 09/06/24 18:44 BP 118/72 09/06/24 17:25 Pulse Ox 99 09/06/24 18:44 O2 Del Method Room Air 09/06/24 18:44 Course Vital Signs Vital signs: Vital Signs Temperature 98 F 09/06/24 17:25 Pulse Rate 68 09/06/24 17:25 Respiratory Rate 20 09/06/24 17:25 Blood Pressure 118/72 09/06/24 17:25 Pulse Oximetry 100 09/06/24 17:25 Oxygen Delivery Method Room Air 09/06/24 17:25 Temperature 98 F 09/06/24 17:25 Pulse Rate 66 09/06/24 18:44 Respiratory Rate 18 09/06/24 18:44 Blood Pressure 118/72 09/06/24 17:25 Pulse Oximetry 99 09/06/24 18:44 Oxygen Delivery Method Room Air 09/06/24 18:44 Medical Decision Making MDM Narrative Medical decision making narrative: Patient presents with continued cough and some shortness of breath after being diagnosed with COVID 9 days ago. Her chest x-ray is clear. She does not have pneumonia which was her concern. She is placed on albuterol inhaler, dextromethorphan with Mucinex and a short course of prednisone 20 mg daily for 7 days. I have provided her with a work note for 3 days and she is to contact her PCP for further management. She is to return for worsening symptoms. Discharge Plan Discharge Stand Alone Forms: Work/School Release Chief Complaint: Shortness of Breath/Dyspnea Clinical Impression: Upper respiratory infection Qualifiers: URI type: unspecified URI Qualified Code(s): J06.9 - Acute upper respiratory infection, unspecified Patient Disposition: Home, Self-Care Time of Disposition Decision: 19:00 Condition: Good Mode of Transportation: Private Vehicle Prescriptions / Home Meds: New albuterol sulfate 90 mcg/actuation HFA aerosol inhaler 1 inh inhalation Q6H PRN (Reason: shortness of breath or wheezing) Qty: 8.5 0RF dextromethorphan-guaifenesin [Mucinex DM] 60-1,200 mg tablet extended release 12 hr 1 tab PO BID PRN (Reason: cough) Qty: 20 0RF prednisone 20 mg tablet 20 mg PO DAILY Qty: 7 0RF No Action cephalexin 500 mg capsule 500 mg PO Q24H doxycycline monohydrate 100 mg capsule 100 mg PO Q12H fluticasone propionate 50 mcg/actuation spray,suspension 2 spray INTRANASAL Q12H ibuprofen 600 mg tablet 600 mg PO Q12H kgqomezjlrhlroc-runibgvuh-GO [Bromfed DM] 2-30-10 mg/5 mL syrup 10 ml PO Q6H PRN (Reason: cold symptoms) Qty: 200 0RF benzonatate 100 mg capsule 200 mg PO TID PRN (Reason: cough) Qty: 20 0RF azithromycin [Zithromax Z-Boy] 250 mg tablet See Rx Instructions .ROUTE .COMPLEX Qty: 6 0RF Rx Instructions: For 250 mg dose pack: take 500 mg today (day 1), then 250 mg for 4 days (days 2-5) guaifenesin [Mucinex] 600 mg tablet extended release 12hr 600 mg PO BID PRN (Reason: cough) Qty: 10 0RF prednisone 20 mg tablet 40 mg PO DAILY 5 Days Qty: 10 0RF albuterol sulfate 90 mcg/actuation HFA aerosol inhaler 2 inh inhalation QID PRN (Reason: shortness of breath or wheezing) Qty: 8.5 0RF Print Language: Iranian Instructions: Upper Respiratory Infection (ED) Additional Instructions: Medications as prescribed. Contact your PCP for further work restrictions as needed. Return anytime for worsening symptoms Referrals: Physician,Non-Staff, MD [Primary Care Provider] - 1 week
[2024-09-06] MEDS: IPRATROPIUM/ALBUTEROL SULFATE 3 ML AMPUL.NEB IH (18:43)
[2024-09-06 18:44] VITALS: PULSE 66; O2SAT 99
== END 2024-09-06 19:26 | disposition home or self-care (01) ==
PROVIDERS: Emergency Provider Emergency Medicine; PCP Student in an Organized Health Care Education/Training Program
DX: J06.9 Acute upper respiratory infection, unspecified (principal); J45.909 Unspecified asthma, uncomplicated; Z86.16 Personal history of COVID-19
CPT/HCPCS: 71046; 94640; 99283